=== PATIENT | male | born 1955 | race Caucasian/White ===

== ENCOUNTER 2017-07-22 00:54 | Emergency (ER) | payer OTHER ==
[~2017-07-22] VITALS: Ht 185.4 cm; Wt 103.9 kg
[2017-07-22 01:00] VITALS: BP_SYST 119
[2017-07-22] MEDS ORDERED: CITA10TA71 PO (01:11)
[2017-07-22] MEDS ORDERED: CLON0.5T4 PO (01:11)
[2017-07-22] MEDS ORDERED: PANT20TA2 PO (01:12)
[2017-07-22] MEDS ORDERED: methylPREDNISolone SOD SUCC/PF 62.5 MG/ML VIAL IM ONE (01:15)
[2017-07-22] MEDS ORDERED: DIPHENHYDRAMINE INJ 50 MG/ML VIAL IM ONE (01:15)
[2017-07-22] MEDS ORDERED: EPINEPHrine 1 MG/ML AMP IM ONE (01:15)
[2017-07-22] MEDS ORDERED: EPINEPHrine JECT 1 MG/10 ML SYR IM ONE (01:15)
[2017-07-22] MEDS ORDERED: FAMOTIDINE 20 MG TABLET PO ONE (02:00)
[2017-07-22] MEDS ORDERED: NACL 0.9% 1,000 ML IV ONE (02:00)
[2017-07-22] MEDS ORDERED: MAGNESIUM SULFATE 50 ML IV ONE (02:00)
[2017-07-22] MEDS ORDERED: EPINEPHrine 1 MG/ML AMP IV ONE (02:30)
[2017-07-22] MEDS ORDERED: methylPREDNISolone SOD SUCC/PF 62.5 MG/ML VIAL IVP ONE (03:15)
[2017-07-22 05:55] VITALS: BP_SYST 114
== END 2017-07-22 05:55 | disposition home or self-care (01) ==
LOC: SED 00:54
DX: T78.1XXA Other adverse food reactions, not elsewhere classified, initial encounter (principal); R13.10 Dysphagia, unspecified; R22.0 Localized swelling, mass and lump, head; Z91.018 Allergy to other foods; X58.XXXA Exposure to other specified factors, initial encounter
CPT/HCPCS: 96365; 96366; 96372; 96375; 99285; J0171; J1200; J2930; J3475; J7030